=== PATIENT | female | born 1935 | race Caucasian/White ===

== ENCOUNTER 2016-09-18 15:52 | Emergency (ER) ==
--- NOTE | 2016-09-18 17:54 | PROVIDER DOCUMENTATION ---
HPI-Musculoskeletal Pain/Inj <Sarah LionChantelle - Last Filed: 09/18/16 19:39> - GENERAL Source: patient - HX OF PRESENT ILLNESS-MUSKULOSKELTAL Quality of Pain: reports: aching Severity in ED: mild Onset/Duration: 1-3 hours ago Timing: gone now Any recent injury?: Yes Locality of Occurance: Home - FALL INJURY Location of Pain/Injury: reports: head Pain Radiation: reports: no radiation Reason for Fall: reports: lost balance (getting up from chair) Symptoms prior to fall:: denies: fever/chills/sweaty, chest pain, rapid heart rate, cough, diarrhea, vomiting, GI bleed, dizzy/lightheaded, headache, seizure Loss of Consciousness: no loss of consciousness Injury Associated Symptoms: reports: nausea. denies: chest pain, dizziness, headaches, muscle aches, shortness of breath, sensory/motor loss, pain with inspiration, unable to bear weight, vomiting, weakness, trouble walking <Wilson Kurtz - Last Filed: 09/18/16 19:48> - GENERAL Chief Complaint: Fall Stated Complaint: FALL Time Seen by Provider: 09/18/16 17:41 - HX OF PRESENT ILLNESS-MUSKULOSKELTAL Nature of Presenting Problem: Pt is a 81 yof who presents to ER with after falling and hitting her head. Pt reports that she was getting up from sitting down when she lost her balance and fell backwards, hitting her head on the wall. Pt reports having mild nausea at the time, but reports that it has subsided now. Pt denies loss of consciousness , headache, vision changes, vomiting, trouble walking, or any other complaints. Pt does report that she did hit her head x8 months ago, suffered a bleed, and "cracked her head," but was not left with any deficits. (Wilson Kurtz) Review of Systems - Adult - REVIEW OF SYSTEMS - ADULT Constitutional: denies: chills, fever, fatique, night sweats Eyes: denies: discharge, dry eyes, decreased vision, blurred vision, double vision, eye pain, redness Ears, Nose, Mouth & Throat: denies: ear discharge, ear pain, hearing loss, sinus problem, throat pain, throat swelling Cardiovascular: denies: chest pain, edema, heart murmur, irregular heart rate, orthopnea, palpitations, poor circulation, PND, syncope Respiratory: denies: chronic cough, cough, dyspnea on exertion, excessive sputum production, hemoptysis, pleurisy, shortness of breath, wheezing Gastrointestinal: reports: nausea. denies: abdominal pain, hematemesis, constipation, diarrhea, difficulty swallowing, frequent heartburn, poor appetite , rectal bleeding, vomiting Genitourinary: reports: no symptoms reported Musculoskeletal: denies: bone pain, back pain, frequent leg cramps, joint pain, joint swelling, muscle aches, muscle weakness, neck pain Integumentary: reports: no symptoms reported Neurological: reports: loss of balance (prior to fall, while getting out of chair). denies: ataxia, dizziness/vertigo, headache/migraines, numbness, paresthesia, seizure, slurred speech, syncope, tremors Psychiatric: reports: no symptoms reported Endocrine: reports: no symptoms reported Hematologic/Lymphatic: reports: no symptoms reported Allergic/Immunologic: reports: no symptoms reported All Other Systems: Reviewed and Negative <Wilson Kurtz - Last Filed: 09/18/16 19:48> Past History - Adult - PAST MEDICAL HISTORY-ADULT Review of Records: reports: Nursing Assessment Review, Medications Reviewed Cardiovascular: reports: A-Fib, HTN, hyperlipidemia Obstetrical/Gynecological: reports: uterine/ovarian cancer - PRIOR SURGERIES/PROCEDURES Surgical/Procedure History: reports: CABG, hysterectomy, hernia repair - PRIOR HOSPITALIZATIONS Prior Hospitalizations: reports: for other non-related - IMMUNIZATION STATUS Childhood Immunizations: See Nurse Assessment Flu Vaccine: See Nurse Assessment <Wilson Kurtz - Last Filed: 09/18/16 19:48> Physical Exam-Injury Related - Physical Exam-Injury Related Initial Vital Signs Reviewed: Yes General Appearance: appears well, alert, mild distress. negative: thin, anxious , obtunded, combative Eyes: PERRL/EOMI, pink conjunctivae, fundi clear, no AV nicking. negative: EOM palsy, meningismus, pale conjunctivae, photophobia, sclera injected, scleral icterus, subconjunctival hemorrhage, sunken eyes Neck: non-tender, full range of motion, supple. negative: C-spine tenderness, decresed ROM, ecchymosis, limited range of motion, muscle spasm, pain on movement, swelling, tender lateral, tender midline, vertebral point tenderness Respiratory: chest non-tender, lungs clear, normal breath sounds. negative: respiratory distress, decreased breath sounds, accessory muscle use, crackles, rales, rhonchi, stridor, wheezing, pain on inspiration, decreased rate, increased rate, ecchymosis Cardiovascular: normal peripheral pulses, regular rate, rhythm. negative: bradycardia, tachycardia, extra beats, irregularly irregular Chest/Breast: no masses/lumps, no tenderness. negative: nipple discharge, tenderness, mass/lump noted Abdominal Exam: normal bowel sounds, non tender, soft. negative: abnormal bowel sounds, distended, guarding, rigid, rebound, tenderness, mass Back Exam: no CVA tenderness, no vertebral tenderness. negative: CVA tenderness , decreased range of motion, ecchymosis, muscle spasm, swelling, vertebral tenderness Extremity: normal range of motion, non-tender, normal gait. negative: deformity , erythema, inflammation, joint effusion, pulse deficit, pedal edema, slow capillary refill, swelling, tenderness Integumentary: normal color, warm/dry. negative: ecchymosis, embolic lesions, erythema, petechiae, rash, swelling, tenderness, warm, abrasion, contusion(s), laceration Neurologic: grossly normal, no motor/sensory deficits. negative: abnormal gait , aphasia, facial droop, focal weakness, motor weakness, sensory deficit Psych/Mental Status: normal mood/affect, normal thought content, normal thought process, oriented x 3. negative: disoriented x 3, paranoid, tearful <Wilson Kurtz - Last Filed: 09/18/16 19:48> Progress - CT/MRI 1 CT Study: Cervical Spine, Head Impression: Normal (Head No blood, no injury. chronic ischemic changes C-spine: no fracture. degenerative changes per Dr. Montero, radiology) <Sarah Lion - Last Filed: 09/18/16 19:39> <Wilson Kurtz - Last Filed: 09/18/16 19:48> - PLAN OF CARE/RESULTS Progress/Plan/Lab Results: Vital Signs Temp Pulse Resp BP Pulse Ox 09/18/16 18:33 60 19 146/65 09/18/16 16:25 98.1 F 78 18 187/65 96 codeine Allergy (Verified 09/18/16 16:54) NAUSEA/VOMITING hydrocodone Allergy (Verified 09/18/16 16:54) NAUSEA ATORVAstatin [Lipitor] 10 mg PO QHS 03/13/14 Aspirin [Aspir-Low] 81 mg PO DAILY 09/18/16 Carvedilol [Coreg] 12.5 mg PO DAILY 09/18/16 Diltiazem HCl [Cartia Xt] 120 mg PO DAILY 09/18/16 Furosemide [Lasix] 40 mg PO DAILY 09/18/16 Meclizine [Antivert] 12.5 mg PO DAILY 09/18/16 Montelukast Sodium [Singulair] 10 mg PO DAILY 09/18/16 Laboratory 09/18/16 09/18/16 09/18/16 17:05 17:05 17:05 WBC 7.83 RBC 4.83 Hgb 14.6 Hct 44.6 MCV 92.3 MCH 30.2 MCHC 32.7 L RDW Std Deviation 13.3 Plt Count 170 MPV 10.8 H Immature Gran % (Auto) 0.3 Neut % (Auto) 63.7 Lymph % (Auto) 25.4 Geary % (Auto) 7.0 Eos % (Auto) 3.1 Baso % (Auto) 0.5 Immature Gran # (Auto) 0.02 Neut # (Auto) 4.99 Lymph # (Auto) 1.99 Geary # (Auto) 0.55 Eos # (Auto) 0.24 Baso # (Auto) 0.04 Sodium 141 Potassium 4.2 Chloride 100 Carbon Dioxide 26 Anion Gap 15 BUN 18 Creatinine 0.9 Estimated GFR/1.73 m2 60 BUN/Creatinine Ratio 20 Glucose 100 Calculated Osmolality 283 Calcium 9.6 Total Bilirubin 0.57 AST 22 ALT 14 Alkaline Phosphatase 100 Total Protein 7.5 Albumin 4.3 Globulin 3.2 Albumin/Globulin Ratio 1.3 Urine Source CLEAN CATCH Urine Color STRAW Urine Turbidity CLEAR Urine pH 7.0 Ur Specific [place] 1.006 Urine Protein NEGATIVE Ur Glucose (Stick) NEGATIVE Ur Ketones (Stick) NEGATIVE Urine Blood NEGATIVE Urine Nitrite NEGATIVE Urine Bilirubin NEGATIVE Urobilinogen Dipstick NORMAL Urine Leukocytes NEGATIVE Urine WBC (Auto) <10 Urine RBC (Auto) <10 U Epithel Cells (Auto) <10 Urine Bacteria (Auto) NEGATIVE Orders Category Date Time Status HEAD/C-SPINE W/O CONTRAST [CT] Stat Exams 09/18/16 17:41 Taken CBC WITH ELECTRONIC DIFF [HEME] Stat Lab 09/18/16 17:05 Completed COMPREHENSIVE METABOLIC PANEL [CHEM] Stat Lab 09/18/16 17:05 Completed UA Reflex [URINALYSIS W/POSS RFLX CULT] [URINALYSIS] Lab 09/18/16 17:05 Completed Stat (Sarah Lion) Vital Signs - 24 hr 09/18/16 09/18/16 16:25 18:33 Temperature 98.1 F Pulse Rate 78 60 Respiratory 18 19 Rate Blood Pressure 187/65 146/65 O2 Sat by Pulse 96 Oximetry Orders Category Date Time Status HEAD/C-SPINE W/O CONTRAST [CT] Stat Exams 09/18/16 17:41 Taken CBC WITH ELECTRONIC DIFF [HEME] Stat Lab 09/18/16 17:05 Completed COMPREHENSIVE METABOLIC PANEL [CHEM] Stat Lab 09/18/16 17:05 Completed UA Reflex [URINALYSIS W/POSS RFLX CULT] [URINALYSIS] Lab 09/18/16 17:05 Completed Stat Laboratory Tests 09/18/16 09/18/16 09/18/16 17:05 17:05 17:05 WBC 7.83 RBC 4.83 Hgb 14.6 Hct 44.6 MCV 92.3 MCH 30.2 MCHC 32.7 L RDW Std Deviation 13.3 Plt Count 170 MPV 10.8 H Immature Gran % (Auto) 0.3 Neut % (Auto) 63.7 Lymph % (Auto) 25.4 Geary % (Auto) 7.0 Eos % (Auto) 3.1 Baso % (Auto) 0.5 Immature Gran # (Auto) 0.02 Neut # (Auto) 4.99 Lymph # (Auto) 1.99 Geary # (Auto) 0.55 Eos # (Auto) 0.24 Baso # (Auto) 0.04 Sodium 141 Potassium 4.2 Chloride 100 Carbon Dioxide 26 Anion Gap 15 BUN 18 Creatinine 0.9 Estimated GFR/1.73 m2 60 BUN/Creatinine Ratio 20 Glucose 100 Calculated Osmolality 283 Calcium 9.6 Total Bilirubin 0.57 AST 22 ALT 14 Alkaline Phosphatase 100 Total Protein 7.5 Albumin 4.3 Globulin 3.2 Albumin/Globulin Ratio 1.3 Urine Source CLEAN CATCH Urine Color STRAW Urine Turbidity CLEAR Urine pH 7.0 Ur Specific [place] 1.006 Urine Protein NEGATIVE Ur Glucose (Stick) NEGATIVE Ur Ketones (Stick) NEGATIVE Urine Blood NEGATIVE Urine Nitrite NEGATIVE Urine Bilirubin NEGATIVE Urobilinogen Dipstick NORMAL Urine Leukocytes NEGATIVE Urine WBC (Auto) <10 Urine RBC (Auto) <10 U Epithel Cells (Auto) <10 Urine Bacteria (Auto) NEGATIVE (Wilson Kurtz) Departure - Departure Time of Disposition Order: 19:44 Certified Medical Emergency: Emergent <Sarah Lion - Last Filed: 09/18/16 19:39> - Departure Time of Disposition Order: 19:48 Certified Medical Emergency: Emergent <Wilson Kurtz - Last Filed: 09/18/16 19:48> - Departure DIAGNOSIS: Fall Qualifiers: Encounter type: initial encounter Qualified Code(s): W19.XXXA - Unspecified fall, initial encounter Disposition: HOME 01 Condition: Stable Additional Instructions: Follow up with your primary care physician ED Follow Up Instructions: You have been treated by a care provider in the Emergency Department. These instructions are being provided to you so you can have an understanding of how to care for yourself upon discharge. Upon discharge from the Emergency Department, you are responsible for making arrangements for follow-up care by a physician of your choice. Take all prescribed medications as directed. Return to the Emergency Department immediately for any new or worsening symptoms. You may call the Physician Referral phone number at [phone] to obtain a list of Physicians who are taking new patients. Referrals: Sofie Mckee MD [Primary Care Provider] - Attestation - Scribe Verification/Attestation Scribe:: Wilson Kurtz Acting as Scribe for:: Sarah Lion Scribe documention review:: This chart was documented by a scribe and accurately reflects the service the provider performed and the decisions made by the provider. <Wilson Kurtz - Last Filed: 09/18/16 19:48> Physician Attestation
[2016-09-18 18:46] LABS: MANUAL DIFF NEEDED? NO; URINE CULTURE NEEDED? NO; URINE MICRO REVIEW NEEDED? NO; URINE SOURCE CLEAN CATCH
[2016-09-18 18:49] LABS: BASO% 0.5 % (0.0-0.8); EOS# 0.24 X1000 (0.0-0.7); EOS% 3.1 % (0.0-10.0); HEMATOCRIT 44.6 % (37.0-47.0); HEMOGLOBIN 14.6 g/dL (12.0-16.0); IMM GRAN# 0.02 X1000 (0.0-0.04); IMM GRAN% 0.3 % (0.0-0.5); LYMPH# 1.99 X1000 (1.2-3.4); LYMPH% 25.4 % (20.5-51.1); MCH 30.2 PG (27-31); MCHC 32.7 g/dL (33-37); MCV 92.3 FL (81-99); MONO# 0.55 X1000 (0.11-0.59); MPV 10.8 FL (7.4-10.4); NEUT% 63.7 % (42.2-75.2); PLT 170 X1000 (130-400); RBC 4.83 XMIL (4.2-5.4)
[2016-09-18 18:58] LABS: BILIRUBIN URINE NEGATIVE (NEGATIVE); BLOOD URINE NEGATIVE (NEGATIVE); COLOR STRAW; GLUCOSE URINE NEGATIVE (NEGATIVE); LEUKOCYTES URINE NEGATIVE (NEGATIVE); NITRITE URINE NEGATIVE (NEGATIVE); PROTEIN URINE NEGATIVE (NEGATIVE); SP GRAVITY URINE 1.006; TURBIDITY URINE CLEAR (CLEAR); UROBILINOGEN URINE NORMAL (NORMAL)
[2016-09-18 18:59] LABS: ALBUMIN 4.3 g/dL (3.5-5.0); CALCIUM 9.6 mg/dL (8.8-10.2); POTASSIUM 4.2 mmol/L (3.5-5.1); TOTAL BILIRUBIN 0.57 mg/dL (0.20-1.00); TOTAL PROTEIN 7.5 g/dL (6.3-8.3)
[2016-09-18 19:00] LABS: UR EPITHELIAL CELLS <10 /HPF (<10); URINE BACTERIA NEGATIVE /HPF; URINE RBC <10 /HPF (<10); URINE WBC <10 /HPF (<10)
[2016-09-18 20:13] VITALS: BP 184/74
--- NOTE | 2016-09-19 07:41 | Diag Imaging Result Document ---
PROCEDURE NAME: HEAD/C-SPINE W/O CONTRAST - 09/18/2016 CT HEAD WITHOUT CONTRAST: A dose-reduction protocol was used. COMPARISON: 07/19/2015. FINDINGS: There is no evidence of intracranial hemorrhage, mass effect, or midline shift. There are chronic microvascular ischemic changes. There is no skull fracture. IMPRESSION: No evidence of intracranial injury. No hemorrhage or mass effect. CT CERVICAL SPINE WITHOUT CONTRAST: A dose-reduction protocol was used. Axial and reformatted sagittal and coronal images are obtained. COMPARISON: No comparison exam. FINDINGS: There is an electrode or catheter which extends along the posterior spinal canal with its tip at the C2-3 level. There is multilevel degenerative disk disease. There is multilevel degenerative facet disease. There is mild degenerative narrowing of the spinal canal at several levels. There is multilevel degenerative neural foraminal narrowing. There is no fracture identified. There is no subluxation seen. There is no precervical soft tissue swelling identified. IMPRESSION: Multilevel degenerative disease. No evidence of fracture or subluxation. The on-call radiologist provided preliminary results at 7:02 p.m. on 09/18/2016. MTDD
== END 2016-09-18 20:14 | disposition home or self-care (01) ==
LOC: ED 15:52
DX: R11.0 Nausea (principal); R42 Dizziness and giddiness; I48.91 Unspecified atrial fibrillation; M50.30 Other cervical disc degeneration, unspecified cervical region; I10 Essential (primary) hypertension; E78.5 Hyperlipidemia, unspecified; Z79.82 Long term (current) use of aspirin; Z79.899 Other long term (current) drug therapy; Z85.40 Personal history of malignant neoplasm of unspecified female genital organ; Z95.1 Presence of aortocoronary bypass graft; W18.30XA Fall on same level, unspecified, initial encounter; W22.09XA Striking against other stationary object, initial encounter
CPT/HCPCS: 70450; 72125; 80053; 81001; 85025

== ENCOUNTER 2018-10-14 10:15 | Inpatient (IN) ==
[2018-10-14 11:20] LABS: URINE SOURCE CLEAN CATCH
[2018-10-14 11:23] LABS: BILIRUBIN URINE NEGATIVE (NEGATIVE); BLOOD URINE NEGATIVE (NEGATIVE); COLOR YELLOW; GLUCOSE URINE NEGATIVE (NEGATIVE); KETONE URINE NEGATIVE (NEGATIVE); LEUKOCYTES URINE NEGATIVE (NEGATIVE); NITRITE URINE NEGATIVE (NEGATIVE); PH URINE 6.5; PROTEIN URINE NEGATIVE (NEGATIVE); TURBIDITY URINE CLEAR (CLEAR); UROBILINOGEN URINE NORMAL (NORMAL)
[2018-10-14 11:24] LABS: UR EPITHELIAL CELLS <10 /HPF (<10); URINE BACTERIA NEGATIVE /HPF; URINE RBC <10 /HPF (<10); URINE WBC <10 /HPF (<10)
--- NOTE | 2018-10-14 11:36 | Diag Imaging Result Doc PS360 ---
EXAM: CT HEAD W/O CONTRAST 10/14/2018 HISTORY: STROKE LIKE SYMPTOMS TECHNIQUE: This exam was performed using automated exposure control, adjustment of mA or kV according to patient size, and/or use of iterative reconstruction technique. COMMENT: There is no evidence of mass effect, bleed, or abnormal extra-axial fluid collection. There are patchy periventricular white matter lucencies. The appearance the brain has not changed significantly since the previous study of 09/18/2016. The visualized paranasal sinuses are clear. There is hyperostosis frontalis interna. No acute bony abnormalities are present. IMPRESSION: Chronic ischemic microvascular changes. No evidence of acute disease. Electronically signed by Dirk Arias 10/14/2018 11:33 AM
--- NOTE | 2018-10-14 12:33 | EKG Report ---
Test Performed on : 10/14/2018 10:33:17 AM Test Reason : WEAK Blood Pressure : / mmHG Vent. Rate : 074 BPM Atrial Rate : 068 BPM P-R Int : 000 ms QRS Dur : 090 ms QT Int : 386 ms P-R-T Axes : 000 044 225 degrees QTc Int : 428 ms Atrial fibrillation. with frequent ventricular-paced complexes Septal infarct , age undetermined ST & T wave abnormality, consider inferior ischemia ST & T wave abnormality, consider anterolateral ischemia Abnormal ECG When compared with ECG of 23-APR-2018 14:49, Vent. rate has decreased BY 8 BPM Unconfirmed Result
--- NOTE | 2018-10-14 12:41 | Diag Imaging Result Doc PS360 ---
CHEST-PORTABLE - 10/14/2018 INDICATION: WEAK COMPARISON: 04/23/2018 FINDINGS: Stable sternotomy wires. Stable pacemaker. Stable implanted electrodes in the posterior right paraspinous soft tissues. Heart size and pulmonary vascularity are top normal. No infiltrates or edema. No pneumothorax or pleural effusion. IMPRESSION: No acute process. Electronically signed by Virgil Maxwell 10/14/2018 12:39 PM
[2018-10-14 12:48] LABS: BASO# 0.03 X1000 (0.0-0.2); BASO% 0.5 % (0.0-0.8); EOS# 0.12 X1000 (0.0-0.7); EOS% 2.1 % (0.0-10.0); HEMATOCRIT 44.3 % (37.0-47.0); HEMOGLOBIN 14.5 g/dL (12.0-16.0); LYMPH# 1.53 X1000 (1.2-3.4); LYMPH% 27.3 % (20.5-51.1); MCH 29.9 PG (27-31); MCHC 32.7 g/dL (33-37); MCV 91.3 FL (81-99); MONO# 0.26 X1000 (0.11-0.59); MONO% 4.6 % (1.7-9.3); MPV 10.1 FL (7.4-10.4); NEUT# 3.67 X1000 (1.4-6.5); NEUT% 65.5 % (42.2-75.2); PLT 191 X1000 (130-400); RBC 4.85 XMIL (4.2-5.4); WBC 5.61 X1000 (4.8-10.8)
[2018-10-14 13:02] LABS: ALB/GLOB RATIO 1.4; ALBUMIN 4.2 g/dL (3.5-5.0); CALCIUM 9.3 mg/dL (8.8-10.2); CREATININE 0.9 mg/dL (0.5-0.9); MAGNESIUM 2.1 mg/dL (1.5-2.7); POTASSIUM 3.5 mmol/L (3.5-5.1); TOTAL BILIRUBIN 0.96 mg/dL (0.20-1.00); TOTAL PROTEIN 7.3 g/dL (6.3-8.3)
[2018-10-14 13:05] LABS: INR 0.96; PROTIME 13.6 Seconds (11.0-16.0)
[2018-10-14] MEDS ORDERED: COREG PO ONE (14:00)
[2018-10-14] MEDS ORDERED: LOPRESSOR IV ONE (14:01)
[2018-10-14] MEDS ORDERED: NS 500 ML IV ONE (14:02)
--- NOTE | 2018-10-14 14:36 | PROVIDER DOCUMENTATION ---
This chart was entered by Kaila Reed Scribe, acting as scribe for Chaka Mckee MD. HPI-Neurological Disorder - General Chief Complaint: Weakness Stated Complaint: STROKE LIKE SYMPTOMS Time Seen by Provider: 10/14/18 13:55 Source: patient, family Allergies/Adverse Reactions: Patient Allergies Allergy/AdvReac Type Severity Reaction Status Date / Time codeine Allergy racing of Verified 04/23/18 17:42 heart hydrocodone Allergy NAUSEA/VOMI Verified 04/23/18 17:42 TING Home Medications: Home Medication List Medication Instructions Recorded Confirmed Last Taken Type ATORVAstatin [Lipitor] 10 mg PO QHS 03/13/14 09/18/16 09/17/16 20:00 History Aspirin [Aspir-Low] 81 mg PO DAILY 09/18/16 09/18/16 09/18/16 07:00 History Carvedilol [Coreg] 12.5 mg PO DAILY 09/18/16 09/18/16 09/18/16 07:00 History Diltiazem HCl [Cartia Xt] 120 mg PO DAILY 09/18/16 09/18/16 09/18/16 07:00 History Furosemide [Lasix] 40 mg PO DAILY 09/18/16 09/18/16 09/18/16 07:00 History Meclizine [Antivert] 12.5 mg PO DAILY 09/18/16 09/18/16 09/18/16 07:00 History Montelukast Sodium [Singulair] 10 mg PO DAILY 09/18/16 09/18/16 09/18/16 07:00 History - History of Present Illness-Neuro Nature of Presenting Problem: Patient is a 83 year old female who presents to the ED with stroke like symptoms. Patient states weakness to RUE and RLE. Patient's family states patient had confusion this morning. Patient states she went to bed last night around 1999 and felt normal. Patient states waking this morning at 0645 with weakness. Patient's family states patient had a brain bleed 5 years ago. Patient states taking a 325 mg aspirin this morning. Patient's family states patient symptoms have improved. Patient states history of chronic left hip pain. Headache Location: reports: other (no headache reported) Severity: reports: mild Onset/Duration: reports: unsure Timing: reports: improving Context: reports: other (weakness to RLE and RUE. confusion) Character of Altered Mental Status: reports: confused Character of Deficits: reports: new weakness New weakness or altered sensation location:: reports: RUE, RLE Cognitive Baseline: alert, oriented x3 Gait Baseline: uses a walker Associated Symptoms: reports: denies symptoms Similar Symptoms Previously?: No Recently seen or treated by another doctor?: No Review of Systems - Adult - REVIEW OF SYSTEMS - ADULT Constitutional: reports: no symptoms reported. denies: chills, fever, fatique Eyes: reports: no symptoms reported Ears, Nose, Mouth & Throat: reports: no symptoms reported Cardiovascular: reports: no symptoms reported Respiratory: reports: no symptoms reported Gastrointestinal: reports: no symptoms reported. denies: abdominal pain, nausea, vomiting Genitourinary: reports: no symptoms reported Musculoskeletal: reports: no symptoms reported Integumentary: reports: no symptoms reported Neurological: reports: other (RUE and RLE weakness. confusion). denies: dizziness/vertigo, headache/migraines, numbness, seizure, slurred speech, syncope Psychiatric: reports: no symptoms reported Endocrine: reports: no symptoms reported Hematologic/Lymphatic: reports: no symptoms reported Allergic/Immunologic: reports: no symptoms reported All Other Systems: Reviewed and Negative Past History - Adult - PAST MEDICAL HISTORY-ADULT Review of Records: reports: Nursing Assessment Review, Medications Reviewed, Social history reviewed & non-contributory. Major Childhood Illnesses: reports: denies history Cardiovascular: reports: A-Fib, HTN, hyperlipidemia, pacemaker Respiratory: reports: denies history Gastrointestinal: reports: denies history Obstetrical/Gynecological: reports: uterine/ovarian cancer Genitourinary: reports: denies history Musculoskeletal: reports: chronic pain (left hip pain) Neurological: reports: denies history Endocrine/Immune: reports: denies history Other Conditions: reports: denies history - PRIOR SURGERIES/PROCEDURES Surgical/Procedure History: reports: CABG, hysterectomy, hernia repair - PRIOR HOSPITALIZATIONS Prior Hospitalizations: reports: for other non-related - IMMUNIZATION STATUS Childhood Immunizations: See Nurse Assessment Flu Vaccine: See Nurse Assessment - FAMILY HISTORY Family History: reviewed, not pertinent - SOCIAL HISTORY Smoking: denies Substance Use: denies Living Situation: alone Physical Exam- Neurological - Physical Exam-Neuro Initial Vital Signs Reviewed: Yes General Appearance: alert, no apparent distress Eye Exam: bilateral eye: normal inspection, PERRL, EOMI HENMT: moist mucous membranes, normal ENT inspection Head Injury: no evidence of injury Neck: non-tender, normal inspection Respiratory: chest non-tender, lungs clear, normal breath sounds Cardiovascular: normal peripheral pulses, regular rate, rhythm Abdominal Exam: normal bowel sounds, non tender, 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 Exam: normal hearing, normal speech, PERRL Motor/Sensory: no motor deficit, no sensory deficit, no pronator drift Integumentary: normal color, normal turgor, warm/dry Psych/Mental Status: normal mood/affect, oriented x 3 Progress - PLAN OF CARE/RESULTS Progress/Plan/Lab Results: Vital Signs - 8 hr 10/14/18 10:30 10/14/18 10:32 10/14/18 10:37 Temperature 97.8 F Pulse Rate 81 81 Respiratory Rate 18 Blood Pressure 183/90 187/93 O2 Sat by Pulse Oximetry 96 100 100 10/14/18 10:40 10/14/18 11:19 10/14/18 11:20 Temperature Pulse Rate 75 83 83 Respiratory Rate Blood Pressure O2 Sat by Pulse Oximetry 97 10/14/18 11:23 10/14/18 11:27 10/14/18 11:30 Temperature Pulse Rate 73 79 77 Respiratory Rate Blood Pressure 197/73 187/83 O2 Sat by Pulse Oximetry 10/14/18 11:32 10/14/18 11:37 10/14/18 11:40 Temperature Pulse Rate 74 71 88 Respiratory Rate Blood Pressure 177/84 169/80 O2 Sat by Pulse Oximetry 10/14/18 11:43 10/14/18 11:48 10/14/18 11:50 Temperature Pulse Rate 79 85 73 Respiratory Rate Blood Pressure 170/78 178/100 O2 Sat by Pulse Oximetry 10/14/18 12:01 10/14/18 12:03 10/14/18 12:08 Temperature Pulse Rate 77 84 83 Respiratory Rate Blood Pressure 127/86 138/72 O2 Sat by Pulse Oximetry 10/14/18 12:10 10/14/18 12:12 10/14/18 12:20 Temperature Pulse Rate 72 82 81 Respiratory Rate Blood Pressure 162/82 O2 Sat by Pulse Oximetry 10/14/18 12:22 10/14/18 12:28 10/14/18 12:30 Temperature Pulse Rate 81 78 76 Respiratory Rate Blood Pressure 152/83 167/89 O2 Sat by Pulse Oximetry 10/14/18 12:32 10/14/18 12:37 10/14/18 12:40 Temperature Pulse Rate 77 78 Respiratory Rate Blood Pressure 153/58 156/70 O2 Sat by Pulse Oximetry 10/14/18 12:42 10/14/18 12:47 10/14/18 12:50 Temperature Pulse Rate 75 76 Respiratory Rate Blood Pressure 166/89 174/76 O2 Sat by Pulse Oximetry 10/14/18 12:53 10/14/18 12:57 10/14/18 13:00 Temperature Pulse Rate 79 76 Respiratory Rate Blood Pressure 173/63 160/71 O2 Sat by Pulse Oximetry 10/14/18 13:02 10/14/18 13:07 10/14/18 13:10 Temperature Pulse Rate 67 73 67 Respiratory Rate Blood Pressure 163/76 166/67 O2 Sat by Pulse Oximetry 10/14/18 12:30 Influenza Screen - Final Nasopharyngeal Laboratory Results - last 24 hr 10/14/18 10/14/18 10/14/18 10:50 12:25 12:25 WBC 5.61 RBC 4.85 Hgb 14.5 Hct 44.3 MCV 91.3 MCH 29.9 MCHC 32.7 L RDW Std Deviation 14.0 Plt Count 191 MPV 10.1 Immature Gran % (Auto) 0.0 Neut % (Auto) 65.5 Lymph % (Auto) 27.3 [place] % (Auto) 4.6 Eos % (Auto) 2.1 Baso % (Auto) 0.5 Immature Gran # (Auto) 0.00 Neut # (Auto) 3.67 Lymph # (Auto) 1.53 [place] # (Auto) 0.26 Eos # (Auto) 0.12 Baso # (Auto) 0.03 PT INR PTT (Actin FS) Sodium 138 Potassium 3.5 Chloride 97 L Carbon Dioxide 29 Anion Gap 12 BUN 15 Creatinine 0.9 Estimated GFR/1.73 m2 60 BUN/Creatinine Ratio 17 Glucose 97 Calculated Osmolality 276 Calcium 9.3 Magnesium 2.1 Total Bilirubin 0.96 AST 24 ALT 18 Alkaline Phosphatase 86 Troponin T Qny-V-Hrlyvndtpzz Pept Total Protein 7.3 Albumin 4.2 Globulin 3.1 Albumin/Globulin Ratio 1.4 Free T4 Urine Source CLEAN CATCH Urine Color YELLOW Urine Turbidity CLEAR Urine pH 6.5 Ur Specific Covel 1.000 Urine Protein NEGATIVE Ur Glucose (Stick) NEGATIVE Ur Ketones (Stick) NEGATIVE Urine Blood NEGATIVE Urine Nitrite NEGATIVE Urine Bilirubin NEGATIVE Urobilinogen Dipstick NORMAL Urine Leukocytes NEGATIVE Urine WBC (Auto) <10 Urine RBC (Auto) <10 U Epithel Cells (Auto) <10 Urine Bacteria (Auto) NEGATIVE 10/14/18 10/14/18 10/14/18 12:25 12:25 12:25 WBC RBC Hgb Hct MCV MCH MCHC RDW Std Deviation Plt Count MPV Immature Gran % (Auto) Neut % (Auto) Lymph % (Auto) [place] % (Auto) Eos % (Auto) Baso % (Auto) Immature Gran # (Auto) Neut # (Auto) Lymph # (Auto) [place] # (Auto) Eos # (Auto) Baso # (Auto) PT 13.6 INR 0.96 PTT (Actin FS) 31.0 Sodium Potassium Chloride Carbon Dioxide Anion Gap BUN Creatinine Estimated GFR/1.73 m2 BUN/Creatinine Ratio Glucose Calculated Osmolality Calcium Magnesium Total Bilirubin AST ALT Alkaline Phosphatase Troponin T Wge-O-Uyjtqvndvwn Pept 1428 H Total Protein Albumin Globulin Albumin/Globulin Ratio Free T4 1.08 Urine Source Urine Color Urine Turbidity Urine pH Ur Specific Covel Urine Protein Ur Glucose (Stick) Ur Ketones (Stick) Urine Blood Urine Nitrite Urine Bilirubin Urobilinogen Dipstick Urine Leukocytes Urine WBC (Auto) Urine RBC (Auto) U Epithel Cells (Auto) Urine Bacteria (Auto) 10/14/18 12:25 WBC RBC Hgb Hct MCV MCH MCHC RDW Std Deviation Plt Count MPV Immature Gran % (Auto) Neut % (Auto) Lymph % (Auto) [place] % (Auto) Eos % (Auto) Baso % (Auto) Immature Gran # (Auto) Neut # (Auto) Lymph # (Auto) [place] # (Auto) Eos # (Auto) Baso # (Auto) PT INR PTT (Actin FS) Sodium Potassium Chloride Carbon Dioxide Anion Gap BUN Creatinine Estimated GFR/1.73 m2 BUN/Creatinine Ratio Glucose Calculated Osmolality Calcium Magnesium Total Bilirubin AST ALT Alkaline Phosphatase Troponin T < 0.010 Cvr-H-Fcdglqiptjn Pept Total Protein Albumin Globulin Albumin/Globulin Ratio Free T4 Urine Source Urine Color Urine Turbidity Urine pH Ur Specific Covel Urine Protein Ur Glucose (Stick) Ur Ketones (Stick) Urine Blood Urine Nitrite Urine Bilirubin Urobilinogen Dipstick Urine Leukocytes Urine WBC (Auto) Urine RBC (Auto) U Epithel Cells (Auto) Urine Bacteria (Auto) Orders Category Date Time Status Saline Loc NOW Care 10/14/18 11:48 Active CHEST-PORTABLE [RAD] Stat Exams 10/14/18 11:[address] HEAD W/O CONTRAST [CT] Stat Exams 10/14/18 10:21 Completed BLOOD CULTURE [BLDCUL] Stat Lab 10/14/18 12:25 Ordered CBC WITH ELECTRONIC DIFF [HEME] Stat Lab 10/14/18 12:25 Completed COMPREHENSIVE METABOLIC PANEL [CHEM] Stat Lab 10/14/18 12:25 Completed FREE T4 Stat Lab 10/14/18 12:25 Completed INFLUENZA SCREEN A/B Stat Lab 10/14/18 12:30 Completed MAGNESIUM [CHEM] Stat Lab 10/14/18 12:25 Completed PRO B-NATRIURETIC PEPTIDE Stat Lab 10/14/18 12:25 Completed PROTIME WITH INR [COAG] Stat Lab 10/14/18 12:25 Completed PTT [COAG] Stat Lab 10/14/18 12:25 Completed TROPONIN T Stat Lab 10/14/18 12:25 Completed UA Reflex [URINALYSIS W/POSS RFLX CULT] [URINALYSIS] Lab 10/14/18 10:50 Completed Stat 0.9% Sodium Chloride Inj [Ns] 500 ml Med 10/14/18 14:02 Active IV 999 mls/hr Carvedilol [Coreg] Med 10/14/18 14:00 Discontinued 12.5 mg PO NOW ONE Metoprolol [Lopressor] Med 10/14/18 14:01 Stop Req 5 mg IV NOW ONE EKG [EKG] Stat Ther 10/14/18 11:48 Draft Result Diagrams: 10/14/18 12:25 10/14/18 12:25 - REASSESSMENT Reassessment #1 Time Reassessed: 14:15 Status: improving (no weakness face, no slurred speech. weakness left arm and mortensen d resolved. still much drift in right leg(new)) - EKG 1 Time of EKG reading by physician:: 10:33 EKG Read and Signed by:: Chaka Mckee EKG Interpretation (*Must complete 3 of following elements*): Abnormal (ST & T wave abnormality, consider inferior ischemia; ST & T wave abnormality, consider anterolateral ischemia) Rate: 74 Rhythm: atrial fibrillation with frequent ventricular-paced complexes Comments: septal infarct, age undetermined; - XRAY 1 XRAY Study: Chest Impression: See EMR Report (CHEST-PORTABLE - 10/14/2018 INDICATION: WEAK COMPARISON: 04/23/2018 FINDINGS: Stable sternotomy wires. Stable pacemaker. Stable implanted electrodes in the posterior right paraspinous soft tissues. Heart size and pulmonary vascularity are top normal. No infiltrates or edema. No pneumothorax or pleural effusion. IMPRESSION: No acute process. Electronically signed by Virgil Maxwell 10/14/2018 12:39 PM 10/14/18 1239 Interpreting Physician: Virgil Maxwell MD Dictated Date/Time: 10/14/18 1238 cc: Chaka Mckee MD; Sofie Mckee MD) - CT/MRI 1 CT Study: Head Impression: See EMR Report (EXAM: CT HEAD W/O CONTRAST 10/14/2018 HISTORY: STROKE LIKE SYMPTOMS TECHNIQUE: This exam was performed using automated exposure control, adjustment of mA or kV according to patient size, and/or use of iterative reconstruction technique. COMMENT: There is no evidence of mass effect, bleed, or abnormal extra-axial fluid collection. There are patchy periventricular white matter lucencies. The appearance the brain has not changed significantly since the previous study of 09/18/2016. The visualized paranasal sinuses are clear. There is hyperostosis frontalis interna. No acute bony abnormalities are present. IMPRESSION: Chronic ischemic microvascular changes. No evidence of acute disease. Electronically signed by Dirk Arias 10/14/2018 11:33 AM 10/14/18 1133 Interpreting Physician: Dirk Arias MD Dictated Date/Time: 10/14/18 1132 cc: Chaka Mckee MD; Sofie Mckee MD) - CONSULTS/PCP/HOSPITALIST Notification #1 *Consult/PCP/Hospitalist*: LASHAE Luna for Hospitalist Time Discussed: 14:07 (Dr. Shelton accepted admit) Reason/Comments: Dr. Mckee consulted with Cheryl about patient. Consult Disposition: Admit Departure - Departure Date of Disposition Decision: 10/14/18 Time of Disposition Decision: 14:07 DIAGNOSIS: Acute ischemic stroke, Afib Disposition: ADMITTED INPATIENT 09 Certified Medical Emergency: Emergent Condition: Stable Referrals and Follow-Ups: Sofie Mckee MD [Primary Care Provider] - - Critical Care Note This patient required my direct & personal management of CC.: No Attestation - Physician/ AUGUSTINA Attestation The physician spent face to face time with patient:: Yes Advanced Practice Provider documentation review:: Supervising physician onsite and consulted in the evaluation and care of this patient. The physician did have a face to face encounter with the patient. - NIH Stroke Scale NIH Type: Initial Evaluation (per hx of family/pt) Level of Consciousness: 0-Alert Best Gaze (horizontal eye movement): 0-Normal Visual (use finger movement, counting or visual threat): 0-No Visual Loss Facial Palsy (show teeth or raise eyebrows & close eyes tght: 0-Symmetrical Movement Motor Function-left arm: 0-Normal Motor Function-right arm: 1-Drift Motor Function-left le-Normal Motor Function-right le-Some Effort Against Covel Limb Ataxia(uvluti-yica-rvkkxr, or heel to [place]): 0-No Ataxia Sensory(pin prick to face,arms,trunk,legs-compare side/side): 0-No Ataxia Best Language(name item/read sentence.Ex-Down to Earth): 0-No Aphasia Dysarthria(Pt read words or say words Ex.Mama,Tip-Top,Thanks: 0-Normal Articulation NIH Total Score: 3 This chart was documented by the indicated scribe, (Kaila Reed, Jimbo) and accurately reflects the services I performed and decisions made by me, Chaka Mckee MD, as attested by the provider's signature.
[2018-10-14] MEDS ORDERED: TYLENOL PO PRN (15:54)
[2018-10-14] MEDS ORDERED: ZOFRAN IV PRN (15:54)
--- NOTE | 2018-10-14 16:05 | HISTORY AND PHYSICAL ---
PRIMARY CARE PROVIDER: Dr. Sofie Mckee. EP DOCTOR: Dr. Moura. CORRECTIONAL COUNSELOR/CASE MANAGER: Dr. Katz. CHIEF COMPLAINT: Right upper and lower extremity weakness. HISTORY OF PRESENT ILLNESS: Ms. Mckee is a pleasant 83-year-old female who carries a past medical history of chronic atrial fibrillation, symptomatic bradycardia status post pacemaker placement by Dr. Campos, coronary artery disease status post CABG x1 to the LAD, atherosclerotic heart disease, hypertension, dyslipidemia, degenerative left hip for which the patient has been on a walker. She is also status post a Watchman that was placed over a year ago by Dr. Moura. Since that time, she has been on full dose aspirin. She got the Watchman secondary to a brain bleed in 2014 from a fall. She reports this a.m. when she woke up, she was lying on her right side. She was unable to move. Eventually, she was able to roll over to her left side and was able to get herself out of the bed. However, she was dragging her right leg. Her son had already left for work for the day. She got up around 6:45 in the morning and was not able to get a hold of anybody until 9 a.m. because she was having problems speaking and could not remember telephone numbers. She was brought into the ED. They did a CT of the head that did not show any brain bleed, but did show some chronic ischemic microvascular changes. Chest x-ray with no acute process. An EKG showed rate-controlled atrial fibrillation that was being ventricular paced. She now reports she has more feeling back in her right upper extremity, but still has some numbness in her right lower extremity. There is some residual weakness to the upper and lower extremities. She has not been sick here recently. She did state yesterday she felt a little drowsy. However, she had been attending a . She gets around with a wheelchair secondary to her left hip. Per her family, she has a lot of near misses with fall secondary to vertigo, as well as her left hip. They say at least 1 time a year, she will suffer from a bad fall. She will be admitted and we will consult Neurology as well as Cardiology for further assistance for anticoagulation, set her up for an echocardiogram, and continue to watch her closely neurologically. PAST MEDICAL HISTORY: 1. Chronic atrial fibrillation. 2. Symptomatic bradycardia, status post pacemaker placement. 3. Coronary artery disease status post single internal mammary artery to the LAD. 4. TENS unit in her back. 5. Left lower extremity karla in her leg. 6. Hypertension. 7. Hyperlipidemia. SURGICAL HISTORY: 1. Status post CABG x1. 2. Pacemaker placement. 3. Watchman device placement [address] Moura. 4. TENS unit in the back. 5. Left lower extremity karla placement. SOCIAL HISTORY: She lives with her son, is surrounded by many family members in the ER. No alcohol, tobacco, or illicit drug use. She does have 5 children and numerous grandchildren. FAMILY HISTORY: Mother and father both from cardiac disease. Brother with coronary artery disease, at the age of 65. Sister, coronary artery disease. ALLERGIES: Codeine and hydrocodone. HOME MEDICATIONS: 1. Aspirin 325 mg p.o. daily. 2. Lipitor 10 mg p.o. at bedtime. 3. Coreg 12.5 mg p.o. daily. 4. Lasix 20 mg p.o. daily. 5. [place] 5/325 one each p.o. b.i.d. 6. Antivert 6.25 mg p.o. daily. 7. Singulair 10 mg p.o. at bedtime. REVIEW OF SYSTEMS: A 14-point review of systems completely negative except for those mentioned in HPI. She denies any fever, chills, headache, nausea, vomiting, diarrhea, chest pain, palpitations. She had complained earlier of some memory issues, not being able to remember phone numbers. She felt like her speech was slightly slurred while she was talking on the phone. Right upper and lower extremity weakness. Most of those symptoms have resolved. She does have some residual right upper and lower extremity weakness. She also has some left lower extremity weakness as well secondary to her degeneration in her left hip that is normal for her. PHYSICAL EXAMINATION: VITAL SIGNS: Temperature is 97.8, heart rate 74, respirations 18, blood pressure 186/86, O2 is 100% on room air. GENERAL: Ms. Mckee is a pleasant 83-year-old female who is sitting up on the stretcher in no acute distress. HEENT: Atraumatic, normocephalic. PERRL. NECK: Supple. Trachea midline. CARDIOVASCULAR: Irregular rate and rhythm. No murmurs, gallops, or rubs. PULMONARY: Bilateral breath sounds. Clear to auscultation, bilaterally decreased in the bases. No rales, rhonchi, or wheezes. GI: Soft, nontender, nondistended. Positive bowel sounds 4 quadrants. EXTREMITIES: Trace lower extremity edema. NEUROLOGIC: The patient is alert and oriented x4. Follows commands. Moves all extremities. She did have some residual right upper and lower extremity weakness as well as some left lower extremity weakness. However, this is normal for the patient. She has a symmetrical smile. Tongue was midline. No deficiencies in shoulder shrug. No pronator drift. DIAGNOSTICS: Head CT: Chronic ischemic microvascular changes. No evidence of acute disease. EKG: Atrial fibrillation with frequent ventricular paced complexes at 74 beats per minute. Chest x-ray: No acute process. LABORATORY DATA: White count 5, hemoglobin and hematocrit 14 and 44, platelet count is 191,000. PT 13, INR 0.96. Sodium 138, potassium 3.5, BUN 15, creatinine 0.9 blood glucose was 97. Troponin was less than 0.010. ProBNP 1428. Albumin 3.1. Urinalysis was negative. ASSESSMENT AND PLAN: 1. Probable ischemic stroke. Head CT just shows chronic microvascular ischemic changes. The patient does have some residual upper and lower extremity weakness. She is unable to have an MRI done secondary to having a pacemaker as well as TENS unit. We will consult Neurology. Continue on full dose aspirin. The patient in 2014 did have a history of a hemorrhagic stroke for which she was taken off her Coumadin, so we will consult Neurology as well as Cardiology to decide about anticoagulation. She does have a history of falling as well as many near misses secondary to vertigo and deterioration of her left hip. She does walk with a walker at home. We will get her working with physical therapy. Consult Agricultural Education Instructor. Probably need some type of rehab. We will allow for permissive hypertension and continue statin and check a lipid profile. 2. Chronic atrial fibrillation, status post pacemaker and Watchman device. We will continue her home Coreg tomorrow as well as her full dose aspirin. 3. Hyperlipidemia. Will continue Lipitor. Check a lipid profile. 4. Vertigo. We will continue her Antivert. 5. Left hip deterioration per patient report. We will continue with p.r.n. pain medication. Continue with physical therapy. 6. Known coronary artery disease status post coronary artery bypass graft. No chest pain. 7. Further recommendation to follow physician evaluation, laboratory, and diagnostic data. Dictated by LASHAE Byrd for Braeden Shelton MD Agree with above. the following is my own face to face assessment. given described symptoms and residual right sided weakness on exam, strongly suspect ischemic vs embolic stroke. echo, telemetry, and carotids to look for secondary causes. Patient on aspirin at home but not on a blood thinner. given uncertainty about cause(ischemic vs embolic from afib) will ask for neurologies opinion on the most appropriate drug therapy(change asa to plavix, add anticoagulant, or both). AFSHIND
--- NOTE | 2018-10-14 20:30 | CONSULTATION ---
DATE OF CONSULTATION: 10/14/2018 IMPRESSION: 1. Acute cerebrovascular accident with right-sided weakness which is rapidly improving. 2. Chronic atrial fibrillation. 3. Recurrent significant falls which on 1 occasion resulted in a intracranial hemorrhage. Patient not felt to be a candidate for long-term anticoagulation. 4. Status post left atrial appendage closure device with Watchman device 1 year ago. 5. Status post permanent pacemaker for symptomatic bradycardia. 6. Atherosclerotic coronary disease with previous coronary bypass grafting with left internal mammary artery graft to left anterior descending coronary. 7. Chronic gait instability as well as significant left hip arthritis. 8. Hypertension. RECOMMENDATIONS: 1. Continue anti-platelet therapy. 2. Followup echocardiography and carotid Doppler study. 3. Neurology consultation. HISTORY: This 83-year-old white female with past history of chronic atrial fibrillation, previous permanent pacemaker for bradycardia, previous coronary bypass surgery, chronic gait instability with significant falling history, hypertension, hyperlipidemia, and advanced degenerative disease of left hip was admitted through the emergency room after she presented with acute right-sided weakness. She relates that she woke up this morning and noted right-sided weakness and numbness. She does not recall any speech difficulty. She did have trouble remembering phone numbers but was not aware of any speech problems. She was brought to the emergency room and had head CT scan which were negative for hemorrhage. Since admission she has had progressive return of strength in the right upper extremity and is having progressive return strength in the right lower extremity although she still has some weakness in the right lower extremity. She has history of significant recurrent falls due to gait instability and on 1 occasion while on warfarin suffered intracranial hemorrhage. She has not felt to be a candidate for long-term anticoagulation thereafter. One year ago she had a Watchman device placed to include left atrial appendage. She was on aspirin and Plavix for several months thereafter but has since been on aspirin alone. There has been no chest pain. There has been no bleeding issues. PAST MEDICAL HISTORY: 1. Atherosclerotic coronary disease and previous coronary bypass grafting as outlined above. 2. Chronic atrial fibrillation. 3. Symptomatic bradycardia and previous permanent pacemaker. 4. Advanced degenerative disease of left hip. 5. Chronic pain disorder with TENS unit in her back. 6. Status post left lower extremity open reduction and internal fixation. 7. Hypertension. 8. Hyperlipidemia. ALLERGIES: She is allergic or intolerant to codeine. Hydrocodone. MEDICATIONS PRIOR TO ADMISSION: As listed. SOCIAL HISTORY: She lives with her son. She does not smoke or use alcohol. FAMILY HISTORY: Negative for premature coronary disease. REVIEW OF SYSTEMS: Pulmonary: Negative. Gastrointestinal: Negative. Constitutional: Negative. Remainder review of systems negative/noncontributory with 14 total systems reviewed. PHYSICAL EXAMINATION: Reveals a pleasant, older white female in no distress. Blood pressure 166/70, heart rate 76 and irregular with ECG monitor showing atrial fibrillation.HEENT: Extraocular movements intact. Mucous membranes moist. Neck: Supple without jugular venous distention. There are no carotid bruits. Chest: Clear to auscultation. Cardiac Exam: Reveals an irregular rate and rhythm without appreciable murmur or gallop. Abdomen: Soft. Bowel sounds are normal. Extremities: Without edema. Neurologic: Reveals her to be alert and fully oriented. Speech is fluent. Upper extremity strength is equal bilaterally. There is some mild right lower extremity weakness compared to left lower extremity. DATA: Twelve lead EKG demonstrates atrial fibrillation with occasional ventricular paced complex and nonspecific ST and T-wave abnormality. LABORATORY DATA: Includes a white blood cell count of 5.61, hematocrit 44.3, hemoglobin 14.5, platelet count 191,000. Sodium 138, potassium 3.5, chloride 97, carbon dioxide 29, BUN 15, creatinine 0.9, glucose 97. Troponin T less than 0.01. cc: Franko Katz MD
[2018-10-14 23:30] LABS: BASO# 0.02 X1000 (0.0-0.2); BASO% 0.4 % (0.0-0.8); EOS% 3.5 % (0.0-10.0); IMM GRAN# 0.02 X1000 (0.0-0.04); IMM GRAN% 0.4 % (0.0-0.5); LYMPH# 2.14 X1000 (1.2-3.4); LYMPH% 37.9 % (20.5-51.1); MCH 29.9 PG (27-31); MCHC 32.5 g/dL (33-37); MONO# 0.36 X1000 (0.11-0.59); MONO% 6.4 % (1.7-9.3); NEUT% 51.4 % (42.2-75.2); PLT 165 X1000 (130-400); RBC 4.35 XMIL (4.2-5.4); RDW 13.8 % (11.5-14.5); WBC 5.64 X1000 (4.8-10.8)
[2018-10-14] MEDS: SINGULAIR PO SCH (23:31)
[2018-10-14] MEDS: LIPITOR PO SCH (23:31)
[2018-10-14 23:41] LABS: AGAP 12; BUN 14 mg/dL (8-22); CHLORIDE 102 mmol/L (98-107); COSMO 279; CREATININE 0.7 mg/dL (0.5-0.9); ESTIMATED GFR > 60; GLUCOSE 84 mg/dL (70-104); POTASSIUM 3.7 mmol/L (3.5-5.1); SODIUM 140 mmol/L (136-145); TCO2 26 mmol/L (25-35)
[2018-10-15] MEDS ORDERED: ASPIRIN EC PO SCH (09:00)
[2018-10-15] MEDS: LASIX PO SCH (09:07)
[2018-10-15] MEDS: COREG PO SCH (09:07)
[2018-10-15] MEDS: ANTIVERT PO SCH (09:07)
[2018-10-15] MEDS: ASPIRIN PO SCH (09:08)
--- NOTE | 2018-10-15 16:23 | CONSULTATION ---
DATE OF CONSULTATION: 10/15/2018 REASON FOR CONSULT: Stroke. HISTORY: This is an 83-year-old right-handed female with history of atrial fibrillation not on anticoagulation, Watchman device placement, pacemaker, hypertension, and hyperlipidemia. She was admitted yesterday with symptoms concerning for stroke. History is from the patient and attentive daughter. The patient woke up yesterday around 7 a.m. with right arm and leg weakness and numbness. She proceeded to do some morning daily activities, including going to the restroom and putting in her dentures, before calling for help. She had a very difficult time doing this, however, due to the weakness, and it took her approximately 2 hours. She had a hard time remembering the telephone numbers for her family and seemed to dial the wrong numbers multiple times before finally contacting her daughter. Daughter denied obvious slurred speech or language difficulty, but did say that she seemed a little bit slowed in her talking. The patient was brought to the emergency department. There was mention apparently of possibly some right lower facial droop. Her symptoms began to improve after at least 3 hours' time. Her right arm has seen significant improvement in strength, and her right leg has also had significant improvement; however, she still notices more weakness in the leg, in particular when she attempts to walk with therapy. She denies prior history of ischemic stroke. She has a bad left hip and has had difficulties with intermittent vertigo for some time now. She has relatively frequent falls. She fell in 2014 and sustained a traumatic right-sided subdural hematoma. She was transferred to [facility] and managed nonsurgically for this. PAST MEDICAL HISTORY: Includes hypertension, hyperlipidemia, coronary disease status post bypass, atrial fibrillation not on anticoagulation, pacemaker placement, Watchman device placement 1 year ago, arthritic left hip, frequent falls, TENS unit in the back, left lower extremity karla placement. SOCIAL HISTORY: No tobacco, alcohol, or illicits. She has several children. She currently lives with her son and has good family support. FAMILY HISTORY: Positive for coronary disease. ALLERGIES: Listed to codeine and hydrocodone. HOME MEDICATIONS: Include aspirin 325 mg daily, Lipitor 10 mg at night, Coreg Lasix, Harbert, Antivert, and Singulair. REVIEW OF SYSTEMS: Balance of 12 was conducted and is otherwise negative except that detailed in the HPI. PHYSICAL EXAMINATION: Vital Signs: Afebrile, blood pressure 183/90 on arrival, current 142/56, pulse 60s to 70s, respirations 14, 98% on room air. Ms Mckee is supine in bed with head of bed elevated. She is very pleasant and cooperative. She is awake, alert, fully oriented. Speech is fluent. No significant dysarthria. No language disturbance detected on bedside testing. Follows simple and complex commands. Left, right, and digit distinction preserved. Pupils are equal, round, reactive to bright light. Gaze conjugate. Extraocular movements are full with the exception of some limited upgaze bilaterally. Visual nunez intact to direct confrontational testing. She can hear. Face symmetric with equal activation. Facial sensation is reported diminished in the right lower face to pinprick compared to the left. Tongue is midline. Palate elevates symmetrically. Shoulder shrug is full. No pronator drift. Tone is equal in the limbs. Strength testing reveals no definite asymmetry in the upper extremities. I can overcome the deltoids, triceps, and biceps bilaterally, grading 4/5. Strength testing of the left lower extremity is limited by a painful left hip, but appears to be relatively preserved. In the right lower extremity, I can overcome her hip flexion at 4/5. Strength appeared to be preserved elsewhere in the right lower extremity. She reports diminished pinprick sensation on the right arm and leg compared to the left. Reflexes are absent at the ankles and patellas bilaterally. No clonus. Plantar response is downgoing. Reflexes trace in the biceps bilaterally. Rapid alternating movements appear symmetric. Osvevs-jf-duuo intact. I did not test her gait. DIAGNOSTICS: Noncontrasted head CT did not show acute findings. This was personally reviewed. Labs reviewed in the chart. Triglycerides 98, cholesterol 127, LDL 83, HDL 31. ASSESSMENT AND PLAN: 1. Acute ischemic stroke. 2. Right hemiparesis and hemisensory loss. Much improved, though not at baseline as detailed above. 3. Atrial fibrillation. Not on anticoagulation. 4. Watchman device placement nearly 1 year ago. 5. Pacemaker. 6. Arthritic left hip and intermittent vertigo with recurrent falls, longstanding. She is a fall risk. 7. History of fall sustaining traumatic subdural hematoma. The patient continues to be a fall risk, and as such, I would still be concerned about anticoagulation for her. I would recommend continuing aspirin therapy, and I would consider adding Plavix temporarily for 3 weeks with a plan to resume aspirin monotherapy thereafter. Continue statin therapy. Agree with carotid Dopplers and echocardiogram. I would continue to monitor her blood pressure closely, allowing for some permissive hypertension, but avoiding hypotension in the next couple of days. Speech Therapy should clear her for diet if they have not already done so. She would benefit from PT and OT. Thank you for the consultation. cc: Radha Cheng MD MTDD
--- NOTE | 2018-10-15 16:59 | PROGRESS NOTE ---
DATE: 10/15/2018 SUBJECTIVE: The patient is resting in bed. OBJECTIVE: Vital signs: Temperature 98 degrees, pulse 68, respirations 14, blood pressure 142/66, oxygen saturation is 98%. HEENT: Atraumatic, normocephalic. Cardiovascular: S1, S2. Respiratory: Has evidence of good air entry bilaterally. Abdomen: Soft, nontender. No masses felt. Extremities: No evidence of edema. Central nervous system: No obvious focal deficits noted. LABS: Triglycerides 98, cholesterol 127, LDL 83, VLDL 20, HDL of 31. ASSESSMENT AND PLAN: 1. Probable cerebrovascular accident. Maintain patient on antiplatelet agent. Continue statin. Recommend PT, OT, as well as speech therapy, along with swallow evaluation. Follow up on 2D echo of the heart and also carotid Doppler study. Maintain patient on Lovenox 40 subcutaneous once a day. Neurology is following. 2. Chronic atrial fibrillation. The patient is status post pacemaker as well as a Watchman device. Continue beta-romain as well as aspirin. Cardiology consulted. 3. Hyperlipidemia. Continue atorvastatin. 4. Coronary artery disease, status post coronary artery bypass graft. Asymptomatic. Continue aspirin, beta romain, as well as statin. 5. Deep vein thrombosis prophylaxis. Lovenox. cc: Austen Puga MD
[2018-10-15] MEDS: PLAVIX PO SCH (18:58)
[2018-10-15] MEDS: LOVENOX SUBQ SCH (18:59)
--- NOTE | 2018-10-15 19:42 | PROGRESS NOTE ---
DATE: 10/15/2018 SUBJECTIVE: Patient continues without chest discomfort or shortness of breath. Her right arm strength and sensation has pretty much returned to normal. She still has some mild residual weakness of the right lower extremity. She did ambulate today with assistance. OBJECTIVE: Vital Signs: Blood pressure 142/56, heart rate 68, oxygen saturation 98% on room air. Neck: There is no significant jugular venous distention. Chest: Clear to auscultation bilaterally. Cardiac: Reveals an irregular rate and rhythm without appreciable murmur or gallop. There is no evidence of peripheral edema. Neurologic exam: Remarkable for some very mild residual weakness in the right lower extremity. IMPRESSION: 1. Recent cerebrovascular accident. 2. Chronic atrial fibrillation. Patient has history of significant falls while on anticoagulation as well as intracranial hemorrhage. She is a poor candidate for anticoagulation. 3. Atherosclerotic coronary artery disease with history of previous coronary bypass grafting. The patient continues without angina. 4. Status post permanent pacemaker for symptomatic bradycardia. 5. Gait instability. RECOMMENDATIONS: 1. Neurology input appreciated. We will add Plavix 75 mg p.o. daily as tolerated to current regimen of aspirin daily. 2. Conservative cardiovascular plans overall. It would be reasonable for patient to be discharged in the next 24 hours. cc: Franko Katz MD
[2018-10-15] MEDS: SINGULAIR PO SCH (20:25)
[2018-10-15] MEDS: LIPITOR PO SCH (20:25)
--- NOTE | 2018-10-15 21:01 | ECHO REPORT ---
ORDER DATE: 10/14/2018 MEASUREMENTS: Septal thickness 1.2, left ventricular internal diameter diastole 4.7, posterior wall thickness 1.0, aortic root 2.4, left atrium 4.2. SUMMARY: 1. Adequate quality study. 2. Aortic valve is trileaflet and opens normally on 2-dimensional images. Peak gradient across the aortic valve is less than 10 mmHg. Moderate mitral annular calcification is demonstrated. There is mild mitral regurgitation. Tricuspid and pulmonic valves are without evidence of structural abnormality with mild to moderate tricuspid regurgitation. Estimated systolic PA pressure by Doppler is 55 mmHg suggesting moderate pulmonary hypertension. Aortic root is normal size. 3. Normal left ventricular dimensions demonstrated. Estimated left ejection fraction appears to be at least 60%. No regional wall motion abnormalities are evident. Left atrium is mildly enlarged. Right atrium is mildly enlarged. The right ventricle is normal in size with grossly preserved right ventricular systolic function. 4. No pericardial effusion. 5. Appearance of inferior vena cava suggests normal central venous pressure. cc: Franko Katz MD
[2018-10-16 06:59] LABS: HEMOGLOBIN A1C 5.5 % (4.8-6.0)
[2018-10-16] MEDS: ASPIRIN PO SCH (08:56)
[2018-10-16] MEDS: COREG PO SCH (08:56)
[2018-10-16] MEDS: PLAVIX PO SCH (08:57)
[2018-10-16] MEDS: ANTIVERT PO SCH (08:57)
[2018-10-16] MEDS: LASIX PO SCH (08:57)
--- NOTE | 2018-10-16 11:13 | PROGRESS NOTE ---
DATE: 10/16/2018 SUBJECTIVE: Ms. Mckee presented with right-sided weakness and numbness. Initial noncontrast CT was unremarkable. Echocardiogram made no mention of source of embolus. I believe that she may have had carotid ultrasound and report is pending. She has cardiac pacemaker and MRI is not an option. Systolic blood pressure was 220 a few days ago and 140s-180s over the last 24 hours. She has atrial fibrillation and does not take anticoagulant medicine. She has clopidogrel added to her daily aspirin this admission. She told me that she seems stronger today on the right side. She believes her walking is improved. She has not had any new problems. OBJECTIVE: General/neurologic: On exam, she is awake, alert, attentive. Speech is not dysarthric. Language function is intact on careful bedside testing. She has full visual nunez tested grossly. She has good power in the left arm. I can overcome the right arm grading 4/5 at the deltoid and wrist extensor. She did well on eiaaod-xy-wzic testing bilaterally. I did not test her gait. IMPRESSION AND PLAN: Right hemiparesis without definite vision or language deficits. This is consistent with dominant left hemisphere infarction, but also consistent with subcortical explanation. Since we cannot get MRI, we might consider repeating her CT electively. If carotid ultrasound has not been done, that can be ordered or we might consider CT angiogram of the head and neck (creatinine 0.7). Echocardiogram findings are reassuring and this may not be a cardioembolic event. Still, she has significant risk for future cardioembolic event with her documented atrial fibrillation. We discussed potential bleeding risk with aspirin and clopidogrel together, and she will be on the lookout for that. If she becomes a better candidate for full anticoagulation, that might be considered later. Would continue cautious management of blood pressure. Thanks for asking Neurology to see Ms. Mckee. cc: MD CYNTHIA Lorenzana III
--- NOTE | 2018-10-16 13:33 | PROGRESS NOTE ---
DATE: 10/16/2018 SUBJECTIVE: The patient is resting in bed. No new complaints today. OBJECTIVE: Vital signs: Temperature 97.9 degrees, pulse 62, respiratory 16, blood pressure 151/51, oxygen saturation is 99%. HEENT: Atraumatic, normocephalic. Cardiovascular: S1, S2. Respiratory: Has evidence of good entry bilaterally. Abdomen: Soft, nontender. No masses felt. Extremities: No evidence of edema. Central nervous system: No obvious focal deficit noted. LABORATORY DATA: Hemoglobin A1c is 5.5. ASSESSMENT AND PLAN: 1. Probable cerebrovascular accident. Continue antiplatelet agent. Maintain patient on statin. Recommend PT, OT, Speech Therapy as well as swallow evaluation. Follow up on 2D echo of the heart as well as carotid Doppler study. Maintain patient on Lovenox 40 subcutaneous once a day. Neurology is following. 2. Chronic atrial fibrillation. The patient is status post pacemaker as well as Watchman device. Continue beta-romain as well as aspirin. Cardiology consulted. 3. Coronary artery disease status post coronary artery bypass graft. Asymptomatic. Continue aspirin, beta blockers as well as statin. 4. Hyperlipidemia. Continue atorvastatin. 5. Deep vein thrombosis prophylaxis. Lovenox. cc: Austen Puga MD
[2018-10-16] MEDS: LOVENOX SUBQ SCH (17:07)
[2018-10-16] MEDS: SINGULAIR PO SCH (23:24)
[2018-10-16] MEDS: LIPITOR PO SCH (23:24)
[2018-10-17] MEDS: ASPIRIN PO SCH (08:22)
[2018-10-17] MEDS: ANTIVERT PO SCH (08:22)
[2018-10-17] MEDS: PLAVIX PO SCH (08:22)
[2018-10-17] MEDS: LASIX PO SCH (08:22)
[2018-10-17] MEDS: COREG PO SCH (08:22)
--- NOTE | 2018-10-17 10:09 | PROGRESS NOTE ---
DATE: 10/17/2018 Ms. Mckee is awake, alert, attentive, and appropriate. Speech is not dysarthric. Language function is intact on brief testing. I can overcome the right arm at the deltoid again today. Wrist extensor is stronger than yesterday. Tone is slightly increased in the right arm. IMPRESSION: Presumed left hemisphere stroke, improved right hemiparesis. I do not have any new suggestion. Would consider follow-up CT electively since MRI is not an option. Also, if not already completed, carotid ultrasound or head/neck CTA would be reasonable. She is tolerating current blood pressure management with systolic blood pressures 140s to 160s today and that range seems reasonable short-term. Longer term, I would consider more aggressive blood pressure management. Again, I cautioned her to be on the lookout for bleeding and bruising problems while taking aspirin and clopidogrel together. Again, she might be a candidate for full anticoagulation later. Thanks for asking Neurology to see Ms. Mckee. cc: MD CYNTHIA Lorenzana III
[2018-10-17] MEDS: LOVENOX SUBQ SCH (16:19)
--- NOTE | 2018-10-17 16:45 | PROGRESS NOTE ---
DATE: 10/17/2018 SUBJECTIVE: The patient is resting comfortably in bed. OBJECTIVE: Vital Signs: Vital signs are as follows: Temperature 97.8 degrees, pulse is 66 blood pressure 125/69, oxygen saturation is 97%. HEENT: Atraumatic, normocephalic. Cardiovascular system: S1, S2. Respiratory system: Has evidence of good air entry bilaterally. Abdomen: Soft, nontender. No masses. Extremities: No evidence of edema. Central nervous system: No obvious focal deficit noted. LABS: None. DIAGNOSTICS: 1. 2D echo shows an ejection fraction of about 60%. 2. Elevated dimensions. ASSESSMENT AND PLAN: 1. Probable cerebrovascular accident. Continue anti-platelet agent, as well as statin. Continue physical therapy. Neurology is following. Railroad Worker consulted for [facility] facility placement. 2. Chronic atrial fibrillation. The patient is status post pacemaker, as well as Watchman device. Continue beta-romain as well as aspirin. Cardiology following. 3. Coronary artery disease status post coronary artery bypass graft. Asymptomatic. Continue aspirin, beta romain, as well as statin. 4. Hyperlipidemia. Continue statin. 5. Deep vein thrombosis prophylaxis on Lovenox. cc: Austen Puga MD
[2018-10-17] MEDS: SINGULAIR PO SCH (20:31)
[2018-10-17] MEDS: LIPITOR PO SCH (20:31)
[2018-10-17] MEDS: NORCO-5 PO PRN (23:27)
[2018-10-18] MEDS: NORCO-5 PO PRN (09:01)
[2018-10-18] MEDS: ANTIVERT PO SCH (09:01)
[2018-10-18] MEDS: ASPIRIN PO SCH (09:01)
[2018-10-18] MEDS: COREG PO SCH (09:01)
[2018-10-18] MEDS: PLAVIX PO SCH (09:01)
[2018-10-18] MEDS: LASIX PO SCH (09:02)
--- NOTE | 2018-10-18 11:58 | PROGRESS NOTE ---
DATE: 10/18/2018 Ms. Mckee is awake, alert, attentive, and appropriate. Speech is not significantly dysarthric. Language function continues intact on brief bedside testing. Visual nunez are full. Facial motility is good. She has good power in the right arm. Tone is very slightly increased in the right arm. She did well on [id number]-ej-[id number] testing bilaterally. She reports considering rehab placement options. I encouraged her to be aggressive with her therapy and to make sure she takes her medicines correctly. There was some family at the bedside today that I have not met before and we reviewed discussion of need for monitoring to make sure she does not develop any bleeding/bruising complications with aspirin/clopidogrel together. Again, if she becomes a candidate for full anticoagulation, that will always be preferred. Thanks for asking Neurology to see Ms. Mckee. cc: Shilpi Valverde III, MD
--- NOTE | 2018-10-18 12:15 | PROGRESS NOTE ---
DATE: 10/18/2018 SUBJECTIVE: The patient is resting comfortable in bed. Not in any obvious distress. OBJECTIVE: Vital signs: Temperature 97.9 degrees, pulse 71, respiratory rate 18, blood pressure 177/73, oxygen saturation is 98%. HEENT: Atraumatic, normocephalic. Cardiovascular: S1, S2. Respiratory system: Has evidence of good air entry bilaterally. Abdomen: Soft, nontender. No masses felt. Extremities: No evidence of edema. Central nervous system: The patient is awake, alert, well oriented. No gross focal deficit noted. LABORATORY DATA: None. ASSESSMENT AND PLAN: 1. Probable cerebrovascular accident. Continue antiplatelet agent as well as a statin. Continue physical therapy. Neurology following. Mattress Stuffer consulted for long-term facility placement. 2. Chronic atrial fibrillation. The patient is status post pacemaker as well as a Watchman device. Continue beta-romain as well as aspirin. Cardiology following. 3. Coronary artery disease status post coronary artery bypass graft. Asymptomatic. Continue aspirin and beta romain, as well as a statin. 4. Hyperlipidemia. Continue statin. 5. Deep vein thrombosis prophylaxis. Lovenox. 6. Disposition. Awaiting insurance approval for long-term facility placement. cc: Austen Puga MD
[2018-10-18] MEDS: LOVENOX SUBQ SCH (16:05)
[2018-10-18] MEDS: LIPITOR PO SCH (20:11)
[2018-10-18] MEDS: SINGULAIR PO SCH (20:11)
[2018-10-19] MEDS: NORCO-5 PO PRN ×2 (01:33→08:05)
[2018-10-19] MEDS: ASPIRIN PO SCH (08:05)
[2018-10-19] MEDS: ANTIVERT PO SCH (08:05)
[2018-10-19] MEDS: COREG PO SCH (08:05)
[2018-10-19] MEDS: PLAVIX PO SCH (08:05)
[2018-10-19] MEDS: LASIX PO SCH (08:05)
[2018-10-19] MEDS: MIRALAX PO SCH ×3 (11:56→21:28)
--- NOTE | 2018-10-19 13:52 | PROGRESS NOTE ---
DATE: 10/19/2018 INTERVAL HISTORY: The patient still has some right-sided weakness but improving slowly. No acute events overnight. No new complaints. REVIEW OF SYSTEMS: Twelve point review of systems negative except as per interval history. VITALS: T-max 98, pulse 61, respiratory rate 18, blood pressure 110/39, O2 saturation 97% on room air. PHYSICAL EXAM: General: No acute distress. Vitals as above. HEENT: Normocephalic, atraumatic. Moist mucous membranes. No cervical adenopathy. Cardiovascular: Irregular rhythm but normal rate. No murmurs noted. Pulmonary: Clear to auscultation bilaterally. No wheezing, rales, or rhonchi. Abdomen: Soft, nontender, nondistended. Bowel sounds positive. Extremities: Peripheral pulses intact. No clubbing, cyanosis or edema. Neurologic: Cranial nerves grossly intact. Still with some mild right-sided weakness but improved from previous. No new focal deficits identified. Psychiatric: Normal mood and affect. Awake, alert, oriented x3. Skin: No new rashes or lesions identified. ASSESSMENT AND PLAN: 1. Likely stroke. Continuing dual anti-platelet therapy. Deferring anticoagulation given history of intracranial bleed, frequent falls and now new right-sided weakness which was previously her stronger side and stable. Anticipate discharge to rehab once placement obtained. 2. Chronic atrial fibrillation patient status with pacemaker and Watchman device. Continue beta romain and antiplatelet medication as above. 3. Coronary artery disease. Patient with coronary artery bypass graft approximately 10 years ago. Continue aspirin, statin, beta romain, Plavix. 4. Hyperlipidemia. Continue statin. 5. Deep vein thrombosis prophylaxis Lovenox.
[2018-10-19] MEDS: LOVENOX SUBQ SCH (16:10)
[2018-10-19] MEDS: LIPITOR PO SCH ×2 (19:36→21:28)
[2018-10-19] MEDS: SINGULAIR PO SCH ×2 (19:36→21:28)
[2018-10-20] MEDS: NORCO-5 PO PRN ×2 (02:33→16:50)
[2018-10-20] MEDS: MIRALAX PO SCH ×2 (09:24→20:34)
[2018-10-20] MEDS: ANTIVERT PO SCH (09:25)
[2018-10-20] MEDS: LASIX PO SCH (09:25)
[2018-10-20] MEDS: PLAVIX PO SCH (09:25)
[2018-10-20] MEDS: COREG PO SCH (09:25)
[2018-10-20] MEDS: ASPIRIN PO SCH (09:25)
--- NOTE | 2018-10-20 15:30 | PROGRESS NOTE ---
DATE: 10/20/2018 SUBJECTIVE: The patient is resting comfortably in bed. Not in any obvious distress. OBJECTIVE: Vital Signs: Temperature 97 degrees, pulse 60, respiratory rate is 19, blood pressure is 139/61, oxygen saturation is 98%. HEENT: The patient is atraumatic and normocephalic. Cardiovascular System: S1, S2. Respiratory System: Has evidence of good air entry bilaterally. Abdomen: Soft, nontender. No masses felt. Extremities: No evidence of edema. Central Nervous System: The patient is awake, alert, oriented . Not in any obvious distress. No focal deficits noted. Laboratory Data: None. ASSESSMENT AND PLAN: 1. Probable cerebrovascular accident. Continue antiplatelet agent as well as a statin. Continue physical therapy. Neurology following. client services director consulted for fdc facility placement. 2. Chronic atrial fibrillation. Patient is status post pacemaker as well as a Watchman device. Continue beta-romain as well as aspirin. Cardiology following. 3. Coronary artery disease, status post coronary artery bypass graft. Asymptomatic. Continue aspirin and beta romain as well as statin. 4. Hyperlipidemia. Continue statin. 5. Deep vein thrombosis prophylaxis. Lovenox. 6. Disposition. Awaiting insurance approval for fdc facility placement. cc: Austen Puga MD
[2018-10-20] MEDS: LOVENOX SUBQ SCH (16:48)
[2018-10-20] MEDS: SINGULAIR PO SCH (20:34)
[2018-10-20] MEDS: LIPITOR PO SCH (20:34)
[2018-10-21 07:28] LABS: BASO# 0.05 X1000 (0.0-0.2); BASO% 0.8 % (0.0-0.8); EOS# 0.19 X1000 (0.0-0.7); HEMOGLOBIN 13.4 g/dL (12.0-16.0); IMM GRAN# 0.03 X1000 (0.0-0.04); IMM GRAN% 0.5 % (0.0-0.5); LYMPH# 2.45 X1000 (1.2-3.4); LYMPH% 39.2 % (20.5-51.1); MCH 29.9 PG (27-31); MCHC 31.9 g/dL (33-37); MCV 93.8 FL (81-99); MONO# 0.48 X1000 (0.11-0.59); MONO% 7.7 % (1.7-9.3); MPV 10.3 FL (7.4-10.4); NEUT# 3.05 X1000 (1.4-6.5); NEUT% 48.8 % (42.2-75.2); PLT 200 X1000 (130-400); RBC 4.48 XMIL (4.2-5.4); RDW 14.4 % (11.5-14.5); WBC 6.25 X1000 (4.8-10.8)
[2018-10-21 07:31] VITALS: BP 167/65
[2018-10-21 07:40] LABS: CALCIUM 9.2 mg/dL (8.8-10.2); CREATININE 0.9 mg/dL (0.5-0.9); POTASSIUM 4.5 mmol/L (3.5-5.1)
[2018-10-21] MEDS: ANTIVERT PO SCH (08:50)
[2018-10-21] MEDS: LASIX PO SCH (08:51)
[2018-10-21] MEDS: ASPIRIN PO SCH (08:51)
[2018-10-21] MEDS: COREG PO SCH (08:51)
[2018-10-21] MEDS: PLAVIX PO SCH (08:52)
--- NOTE | 2018-10-21 12:06 | DISCHARGE SUMMARY ---
ADMISSION DATE: 10/14/2018 DISCHARGE DATE: 10/21/2018 PRINCIPAL DIAGNOSIS: Probable acute cerebrovascular accident. SECONDARY DIAGNOSES: 1. Chronic atrial fibrillation. 2. Coronary artery disease. 3. Hyperlipidemia. 4. Hypertension. DISCHARGE MEDICATIONS: Include the following: Aspirin 325 mg p.o. once a day, clopidogrel 75 mg p.o. once a day, atorvastatin 10 mg p.o. at bedtime, carvedilol 12.5 g p.o. once a day, Singulair 10 mg p.o. at bedtime, Antivert 6.25 g p.o. daily, [place] 5 twice a day, torsemide 10 mg p.o. daily. PROCEDURES DONE DURING THIS HOSPITAL STAY: On 10/14/2018, head CT and a 2D echocardiogram of the heart on 10/14/2018. CONSULTATIONS DONE DURING THIS HOSPITAL STAY: On 10/15/2018, Dr. Radha Cheng, neurology. HOSPITAL COURSE: Ms. Felicitas Mckee is an 83-year-old female who has a history of chronic atrial fibrillation. She is status post pacemaker implantation. She also has a history of coronary artery disease, status post coronary artery bypass graft. She recently had a Watchman placed over a year ago by Dr. Moura. The patient was admitted to the hospital because of right upper as well as lower extremity weakness. She did have a CT scan of the brain which did not show any acute findings. Because she did have a pacemaker, we could not do an MRI of the brain. A 2D echocardiogram of the heart showed normal LV dimensions with an ejection fraction of about at least 60%. Her symptoms did improve while in the hospital and she was seen by the neurology team as well. The patient seemed to have done fairly well and she will benefit from rehab placement. As such, she has been transferred to [facility] in [place] where she will continue to recuperate. PHYSICAL EXAMINATION: Vital Signs: During my evaluation today, her vital signs are as follows, temperature 97.9 degrees, pulse 79, respirations 18, blood pressure 167/65, oxygen saturation is 99%. HEENT: Atraumatic, normocephalic. Cardiovascular System: S1 and S2. Respiratory System: Has evidence of good air entry bilaterally. Abdomen: Soft, nontender. No masses felt. Extremities: No evidence of edema. Central Nervous System: No obvious focal deficits. LABORATORY DATA: WBCs 6.25, hematocrit is 42.0, with a platelet count of 200,000. Sodium is 143, potassium 4.5, chloride is 105, bicarbonate 29, BUN is 15, creatinine 0.9. Lipid panel: Triglycerides 98, total cholesterol 127, LDL is 83, VLDL 20, HDL is 31. PLAN: At this time, the patient can be discharged to [facility] where she will continue to recuperate. She will need PT and OT evaluation. She will also need speech as well as a swallow evaluation. She will continue to take her discharge medications as outlined above. Patient will also need to follow up with her primary care physician in about 2 weeks after she is discharged from the assisted facility. cc: Austen Puga MD
--- NOTE | 2018-10-22 13:33 | Carotid Study ---
DATE: 10/14/2018 PROCEDURE: Bilateral duplex and color flow imaging of the carotid arteries performed using the [employer] Vivid E9 ultrasound system with a 9L-D transducer. REFERRING PHYSICIAN: Braeden Shelton MD. INTERPRETING PHYSICIAN: Abimbola Chicas MD. TECH: Richelle Wills Merrill. INDICATIONS: An 83-year-old female. Stroke with right-sided weakness. OBSERVED DATA RIGHT LEFT Brachial Blood Pressure Carotid Pulse Bruits: Carotid/Sub DIAGRAM OF ULTRASOUND IMAGING R L RIGHT INT EXT INT EXT LEFT Porfirio (cm/s) Porfirio (cm/s) Subclavian 61/0 Subclavian 91/0 CCA Proximal 64/9 CCA Proximal 105/19 CCA Distal 74/16 CCA Distal 67/14 Bulb 62/11 Bulb 76/16 ICA Proximal 64/16 ICA Proximal 62/12 ICA Mid 88/29 ICA Mid 75/22 ICA Distal 108/24 ICA Distal 80/18 ECA 107/10 ECA 88/9 Vertebral 44/13 Forward flow Vertebral 35/9 Forward flow ICA/CCA Ratio 1.46 ICA/CCA Ratio 0.76 % Stenosis 0-39% % Stenosis 0-39% PHYSICIAN INTERPRETATION: Mild atherosclerotic disease of the distal common and internal carotid arteries bilaterally without evidence of a hemodynamically significant lesion in either carotid system. cc: Abimbola Chicas MD
== END 2018-10-21 14:17 | DRG 65 ==
LOC: ED 10:15 → 3N 15:27 → SUATTDRO 15:27 → 3N 10-18 14:01
PROVIDERS: ATTEND Internal Medicine
CPT/HCPCS: 70450; 71010; 71045; 80048; 80053; 80061; 81001; 83036; 83721; 83735; 83880; 84439; 84484; 85025; 85610; 85730; 87040; 87275; 87276; 87804; 92610; 93005; 93306; 93880; 94761; 97110; 97116; 97162; 97165; 97168; 97530; 97535; 99285; A9270; C8929; J1650; J7040; Q9957